=== PATIENT | male | born 1935 | race Asian ===

== ENCOUNTER 2018-07-09 15:35 | Emergency (ER) | payer OTHER ==
[~2018-07-09] VITALS: Ht 185.4 cm; Wt 90.7 kg
[2018-07-09 15:35] VITALS: BP 138/69; TEMP 97.7
[~2018-07-09 15:35] MED LIST: AMANTADINE100 MG PO; BISACODYL5 M1 PO; BRIMONIDINE0.2 % OP; CLON1TAB18 PO; DILANTIN30 MG PO; DIVA250T2 PO; DONE5TAB PO; FURO20TA67 PO; GABA100C2 PO; HALO5INJ3 IM; LATA0.00 OP; LEXAPRO10 MG PO; LISI10TA11 PO; LORA1TAB17 PO; LORA2INJ21 INJ; NAMENDA XR28 MG PO; OMEPRAZOLE20 M1 PO; PHEN50CH2 PO; POTA10CA3 PO; SEROQUEL100 MG PO; TAMS0.4C PO; [UNRECOGNIZED DRUG - SUPPLY] XX
[2018-07-09 16:28] LABS: PLATELET COUNT 182 K/uL (142-355)
[2018-07-09 16:38] LABS: POTASSIUM 4.5 mmol/L (3.6-5.2)
[2018-07-09] MEDS ORDERED: OMEPRAZOLE20 M1 PO (17:54)
[2018-07-09] MEDS ORDERED: QUET100T2 PO (17:56)
[2018-07-09] MEDS ORDERED: AMLODIPINE BESYLATE PO (17:57)
[2018-07-09] MEDS ORDERED: FERROUS SULF325 M1 PO (17:59)
[2018-07-09] MEDS ORDERED: FURO20TA67 PO (18:00)
[2018-07-09] MEDS ORDERED: PHENYTEK300 MG PO ×2 (18:04→18:20)
[2018-07-09] MEDS ORDERED: K-TAB10 MEQ PO (18:05)
[2018-07-09] MEDS ORDERED: DIVA500T2 PO (18:08)
[2018-07-09] MEDS ORDERED: DIVA250T2 PO (18:09)
[2018-07-09] MEDS ORDERED: GABA300C2 PO (18:10)
[2018-07-09] MEDS ORDERED: NAMENDA10 MG PO (18:11)
[2018-07-09] MEDS ORDERED: CLON1TAB18 PO (18:12)
[2018-07-09] MEDS ORDERED: DONE5TAB PO (18:15)
[2018-07-09] MEDS ORDERED: PSYL0.52C PO (18:16)
[2018-07-09] MEDS ORDERED: TAMSULOSIN0.4 MG PO (18:22)
[2018-07-09] MEDS ORDERED: QUETIAPINE300 MG PO (18:22)
[2018-07-23] MEDS ORDERED: PHENYTEK300 MG PO (10:52)
[2018-07-23] MEDS ORDERED: K-TAB10 MEQ PO (10:53)
[2018-07-23] MEDS ORDERED: QUETIAPINE300 MG PO (10:54)
[2018-07-23] MEDS ORDERED: QUET100T2 PO (10:55)
[2018-07-23] MEDS ORDERED: DIVALPROEX500 MG PO (10:57)
[2018-07-23] MEDS ORDERED: DIVA250T PO (10:57)
[2018-07-23] MEDS ORDERED: CLON0.5T36 PO (10:57)
[2018-07-23] MEDS ORDERED: PANTOPRAZOLE 40MG TA PO (10:58)
== END 2018-07-09 17:21 | disposition other institution (70) ==
LOC: ED 15:35
DX: R45.6 Violent behavior (principal); R60.9 Edema, unspecified; F03.90 Unspecified dementia, unspecified severity, without behavioral disturbance, psychotic disturbance, mood disturbance, and anxiety; R06.02 Shortness of breath; Z04.6 Encounter for general psychiatric examination, requested by authority
CPT/HCPCS: 36415; 80053; 82550; 82553; 83880; 84484; 85027; 93005; 99285